=== PATIENT | female | born 2000 | race Caucasian/White ===

== ENCOUNTER 2022-03-18 17:08 | Emergency (ER) | payer BC, SELFPAY ==
[2022-03-18 17:22] VITALS: BP 116/87; PULSE 96; RESP 16; TEMP 37.1; O2SAT 100
--- NOTE | 2022-03-18 17:35 | ED.URI ---
HPI - URI/Sore Throat General Chief Complaint: Upper Respiratory Infection Stated Complaint: positive for flu A; sinus pressure; headache Time Seen by Provider: 03/18/22 17:35 Source: patient Mode of arrival: ambulatory Limitations: no limitations History of Present Illness HPI Narrative: 21-year-old female presents with complaint of severe nasal congestion, sinus pressure, sinus headaches for 2 days. Taking migraine medication and ibuprofen with no relief. Has tried Sudafed last night but did not help. Afebrile. Patient is tearful. Was diagnosed with influenza last week and took 5 day course of Tamiflu. Is concerned that she has a sinus infection. All systems reviewed and negative except as noted above. Related Data Allergies Allergy/AdvReac Type Severity Reaction Status Date / Time No Known Allergies Allergy Verified 03/18/22 17:30 Review of Systems Review of Systems: CONSTITUTIONAL: Denies fever, chills, or sweats. EYES: Denies visual changes, redness, or discharge. ENT: Reports rhinorrhea, congestion, sinus pressure sore throat, and otalgia. CARDIOVASCULAR: Denies chest pain, palpitations, or edema. RESPIRATORY: Denies cough or dyspnea. GASTROINTESTINAL: Denies abdominal pain, nausea, vomiting, or diarrhea. GENITOURINARY: Denies dysuria or hematuria. SKIN: Denies rash or itching. MUSCULOSKELETAL: Denies back pain, joint pain, or myalgia. NEUROLOGIC: Denies headache, numbness, or weakness. PSYCHIATRIC: Denies anxiety or depression. All other systems reviewed are negative, except as documented in HPI. PMFSH Comments At time of signature, agree with nursing past medical, surgical, social and family history. There is no relevant family history pertinent to the presenting complaint. Exam Narrative: GENERAL: This is a well-nourished, well-developed patient, in no apparent distress. HEAD: normocephalic, atraumatic. EYES: PERRL. Sclera clear/white. Vision is grossly intact. EARS: External ears normal, auditory canals clear and without drainage, fluid to bilateral TMs, bulging without erythema. No perforation. NOSE: External nose normal with purulence nasal drainage, moderate congestion, bilateral maxillary sinus tenderness. THROAT: Mucous membranes moist, purulence postnasal drainage, mild erythema posterior pharynx. NECK: Neck supple, non-tender without lymphadenopathy, masses or thyromegaly. CARDIOVASCULAR: Regular rate and rhythm without murmurs, gallops, or rubs. RESPIRATORY: Clear to auscultation. Breath sounds equal bilaterally. No wheezes, rales, or rhonchi. SKIN: warm, Dry, intact with no suspicious lesions or rash, good texture and turgor. NEURO: awake, alert, and oriented to person, place and time. There were no obvious focal neurologic abnormalities. EXTREMITIES: No joint tenderness, effusion, or edema noted. No calf tenderness. Negative Homans sign bilaterally. BACK: Nontender without deformity. No CVA tenderness. Course Course Level of Care: Express Care Visit Vital Signs Vital signs: Vital Signs Temperature 37.1 C 03/18/22 17:22 Pulse Rate 96 03/18/22 17:22 Respiratory Rate 16 03/18/22 17:22 Blood Pressure 116/87 03/18/22 17:22 Pulse Oximetry 100 03/18/22 17:22 Oxygen Delivery Room Air 03/18/22 17:22 Temperature 37.1 C 03/18/22 17:22 Pulse Rate 96 03/18/22 17:22 Respiratory Rate 16 03/18/22 17:22 Blood Pressure 116/87 03/18/22 17:22 Pulse Oximetry 100 03/18/22 17:22 Oxygen Delivery Room Air 03/18/22 17:22 Reviewed MDM - URI/Sore Throat MDM Narrative Medical decision making narrative: Patient is aware of diagnosis, understands and agrees to treatment plan. Anticipatory guidance given. Patient agrees to follow-up as directed and is aware of reasons to seek care at the emergency department. Portions of this record may have been created with voice recognition software Discharge Plan Discharge Clinical Impression: Acute bacterial sinusitis Bobby
== END 2022-03-18 17:50 | disposition home or self-care (01) ==
PROVIDERS: Emergency Provider Nurse Practitioner Family
DX: J01.90 Acute sinusitis, unspecified (principal)
CPT/HCPCS: 99213; G0463